=== PATIENT | female | born 1950 | race Asian ===

== ENCOUNTER 2022-07-10 09:55 | Outpatient (CLI) | payer MEDICARE | END 2022-07-10 09:56 | disposition home or self-care (01) | LOC: CSHMAMMO 09:55 | PROVIDERS: ATTEND Family Medicine | DX: Z12.31 Encounter for screening mammogram for malignant neoplasm of breast (principal) | CPT/HCPCS: 77063; 77067 ==

== ENCOUNTER 2024-11-10 14:00 | Outpatient (CLI) | payer MEDICARE | END 2024-11-10 14:01 | disposition home or self-care (01) | LOC: CSHMAMMO 14:00 | PROVIDERS: ATTEND Family Medicine | DX: M81.0 Age-related osteoporosis without current pathological fracture (principal) | CPT/HCPCS: 77080 ==